=== PATIENT | female | born 1975 | race Two or more races ===

== ENCOUNTER 2018-04-12 18:20 | Inpatient (IN) | payer OTHER ==
[~2018-04-12] VITALS: Ht 157.5 cm; Wt 89.4 kg
[2018-04-12] MEDS ORDERED: FERR325E14 PO (18:46)
[2018-04-12] MEDS ORDERED: PREN-380 PO (18:46)
[2018-04-12] MEDS ORDERED: TERBUTALINE 1 MG/ML VIAL SUBQ SCH (18:50)
[2018-04-12 18:59] VITALS: BP 115/64
[2018-04-12 19:15] LABS: BASOPHILS % (AUTO) 0.2 % (0.0-2.0); EOSINOPHILS # (AUTO) 0.2 K/uL (0-0.4); EOSINOPHILS % (AUTO) 1.5 % (0.0-4.0); HEMATOCRIT 32.2 % (36-48); HEMOGLOBIN 10.9 g/dL (12.0-16.0); LYMPHOCYTES # (AUTO) 1.7 K/uL (2.5-16.5); LYMPHOCYTES % (AUTO) 17.3 % (20.5-51.1); MEAN CORPUSCULAR HEMOGLOBIN 28 pg (27-31); MEAN CORPUSCULAR HGB CONC 34 g/dL (33-37); MEAN CORPUSCULAR VOLUME 84.1 fL (80-94); MONOCYTES # (AUTO) 0.7 K/uL (0.8-1.0); MONOCYTES % (AUTO) 6.7 % (1.7-9.3); NEUTROPHILS # (AUTO) 7.4 K/uL (1.8-7.7); NEUTROPHILS % (AUTO) 74.3 % (42.2-75.2); PLATELET COUNT (AUTO) 212 K/uL (140-450); RED BLOOD CELL COUNT(AUTO) 3.83 MIL/uL (4.20-5.40); RED CELL DISTRIBUTION WIDTH 14.3 % (11.6-13.7); WHITE BLOOD COUNT (AUTO) 9.9 K/uL (4.8-10.8)
[2018-04-12] MEDS: LACTATED RINGERS 1,000 ML IV SCH (19:35)
[2018-04-12] MEDS ORDERED: BETAMETH ACET/BETAMETH NA PH 30 MG/5 ML VIAL IM ONE (20:09)
[2018-04-12] MEDS ORDERED: AMPICILLIN 2,000 MG VIAL ONE (20:29)
[2018-04-12 20:30] LABS: APPEARANCE,URINE CLEAR (CLEAR); COLOR,URINE YELLOW (YELLOW); UGLUCOSE NEGATIVE (NEGATIVE)
[2018-04-12 20:31] LABS: BILIRUBIN,URINE NEGATIVE (NEGATIVE); BLOOD, URINE NEGATIVE (NEGATIVE); LEUKOCYTE ESTERASE ,URINE NEGATIVE (NEGATIVE); NITRITE, URINE NEGATIVE (NEGATIVE)
[2018-04-12] MEDS ORDERED: AMPICILLIN 2,000 MG in NACL 0.9% 100 ML IV ONE (21:00)
[2018-04-12] MEDS ORDERED: BETAMETH ACET/BETAMETH NA PH 30 MG/5 ML VIAL IM SCH (21:00)
[2018-04-12] MEDS: NALBUPHINE 10 MG/ML AMP IVP PRN (22:48)
[2018-04-12] MEDS ORDERED: NALBUPHINE 10 MG/ML AMP ONE (22:50)
[2018-04-13] MEDS: LACTATED RINGERS 1,000 ML IV SCH ×3 (00:01→14:44)
[2018-04-13] MEDS ORDERED: AMPICILLIN 1,000 MG VIAL ONE ×6 (00:24→20:07)
[2018-04-13] MEDS: AMPICILLIN 1,000 MG in NACL 0.9% 50 ML IV SCH ×6 (00:31→20:36)
[2018-04-13] MEDS ORDERED: BETAMETH ACET/BETAMETH NA PH 30 MG/5 ML VIAL IM ONE (07:53)
--- NOTE | 2018-04-13 08:40 | NUR ---
PATIENT HAS BEEN SCREENED AND CATEGORIZED LOW NUTRITION RISK. PATIENT WILL BE SEEN WITHIN 7 DAYS OF ADMISSION. 04/19/[address]
[2018-04-13 10:03] LABS: BASOPHILS % (AUTO) 0.1 % (0.0-2.0); EOSINOPHILS % (AUTO) 0.1 % (0.0-4.0); HEMATOCRIT 29.2 % (36-48); HEMOGLOBIN 9.9 g/dL (12.0-16.0); LYMPHOCYTES # (AUTO) 1.1 K/uL (2.5-16.5); LYMPHOCYTES % (AUTO) 9.9 % (20.5-51.1); MEAN CORPUSCULAR HEMOGLOBIN 28 pg (27-31); MEAN CORPUSCULAR HGB CONC 34 g/dL (33-37); MEAN CORPUSCULAR VOLUME 83.6 fL (80-94); MONOCYTES # (AUTO) 0.3 K/uL (0.8-1.0); MONOCYTES % (AUTO) 2.9 % (1.7-9.3); NEUTROPHILS # (AUTO) 9.5 K/uL (1.8-7.7); PLATELET COUNT (AUTO) 209 K/uL (140-450); RED BLOOD CELL COUNT(AUTO) 3.49 MIL/uL (4.20-5.40); RED CELL DISTRIBUTION WIDTH 14.3 % (11.6-13.7); WHITE BLOOD COUNT (AUTO) 10.9 K/uL (4.8-10.8)
[2018-04-13 10:20] LABS: PROTHROMBIN TIME 9.3 secs (10.8-13.4)
--- NOTE | 2018-04-13 13:34 | NUR ---
CM NOTE INITIAL REVIEW FAXED TO [facility] [phone]
[2018-04-13] MEDS ORDERED: SODIUM PHOSPHATE 118 ML ENEM RC PRN (13:50)
[2018-04-14] MEDS: NALBUPHINE 10 MG/ML AMP IVP PRN (00:08)
[2018-04-14] MEDS ORDERED: NALBUPHINE 10 MG/ML AMP ONE (00:11)
[2018-04-14] MEDS ORDERED: AMPICILLIN 1,000 MG VIAL ONE ×4 (00:11→12:28)
[2018-04-14] MEDS: AMPICILLIN 1,000 MG in NACL 0.9% 50 ML IV SCH ×2 (04:30→08:22)
[2018-04-14] MEDS: LACTATED RINGERS 1,000 ML IV SCH (08:23)
== END 2018-04-14 17:55 | disposition home or self-care (01) | DRG 566 ==
LOC: MLD 18:20
PROVIDERS: ADMIT Obstetrics & Gynecology; ATTEND Obstetrics & Gynecology
PROC: 3E0234Z Introduction of Serum, Toxoid and Vaccine into Muscle, Percutaneous Approach (ICD-10-PCS; principal; 2018-04-14)
DX: O26.893 Other specified pregnancy related conditions, third trimester (principal); O34.219 Maternal care for unspecified type scar from previous cesarean delivery; Z3A.32 32 weeks gestation of pregnancy; Z29.13 Encounter for prophylactic Rho(D) immune globulin
CPT/HCPCS: 36415; 76805; 81003; 85025; 85379; 85384; 85610; 85730; 86886; 86900; 86901; J0290; J0702; J2300; J2790; J7120; Q0092

== ENCOUNTER 2018-05-17 10:30 | Inpatient (IN) | payer OTHER ==
[~2018-05-17] VITALS: Ht 157.5 cm; Wt 94.3 kg
[~2018-05-17 10:30] MED LIST: FERR325E14 PO; PREN-380 PO
[2018-05-24] MEDS ORDERED: LACTATED RINGERS 1,000 ML IV SCH (07:31)
[2018-05-24] MEDS ORDERED: CITRIC ACID/SODIUM CITRATE 30 ML UDC PO SCH (07:35)
--- NOTE | 2018-05-24 09:13 | NUR ---
PATIENT HAS BEEN SCREENED AND CATEGORIZED LOW NUTRITION RISK. PATIENT WILL BE SEEN WITHIN 7 DAYS OF ADMISSION. 05/30/[address]
[2018-05-24 10:29] LABS: BASOPHILS % (AUTO) 0.2 % (0.0-2.0); EOSINOPHILS # (AUTO) 0.1 K/uL (0-0.4); EOSINOPHILS % (AUTO) 0.7 % (0.0-4.0); HEMATOCRIT 32.8 % (36-48); HEMOGLOBIN 10.9 g/dL (12.0-16.0); LYMPHOCYTES # (AUTO) 1.5 K/uL (2.5-16.5); LYMPHOCYTES % (AUTO) 17.3 % (20.5-51.1); MEAN CORPUSCULAR HEMOGLOBIN 28 pg (27-31); MEAN CORPUSCULAR HGB CONC 33 g/dL (33-37); MEAN CORPUSCULAR VOLUME 83.4 fL (80-94); MONOCYTES # (AUTO) 0.4 K/uL (0.8-1.0); MONOCYTES % (AUTO) 4.8 % (1.7-9.3); NEUTROPHILS # (AUTO) 6.8 K/uL (1.8-7.7); PLATELET COUNT (AUTO) 171 K/uL (140-450); RED BLOOD CELL COUNT(AUTO) 3.93 MIL/uL (4.20-5.40); RED CELL DISTRIBUTION WIDTH 16.1 % (11.6-13.7); WHITE BLOOD COUNT (AUTO) 8.9 K/uL (4.8-10.8)
[2018-05-24] MEDS ORDERED: BUPIVACAINE/DEXT 0.75% SPINAL 2 ML AMP INJ ONE (10:30)
[2018-05-24 10:35] LABS: ANION GAP 8.5 (8-16); CARBON DIOXIDE 27.2 mmol/L (21-32); CREATININE 0.5 mg/dL (0.6-1.3); POTASSIUM 3.7 mmol/L (3.5-5.1)
[2018-05-24 10:38] LABS: BILIRUBIN,URINE NEGATIVE (NEGATIVE); BLOOD, URINE NEGATIVE (NEGATIVE); COLOR,URINE YELLOW (YELLOW); LEUKOCYTE ESTERASE ,URINE NEGATIVE (NEGATIVE); NITRITE, URINE NEGATIVE (NEGATIVE); PH,URINE 6.5 (5.0-9.0); UGLUCOSE NEGATIVE (NEGATIVE)
[2018-05-24 10:39] LABS: PROTHROMBIN TIME 9.1 secs (10.8-13.4)
[2018-05-24 10:39] LABS: APPEARANCE,URINE CLEAR (CLEAR)
[2018-05-24 10:40] LABS: ALBUMIN 2.2 g/dL (3.4-5.0); TOTAL BILIRUBIN 0.2 mg/dL (0.0-1.0)
[2018-05-24] MEDS ORDERED: MORPHINE PRES FREE 10 MG/10 ML AMP IV ONE (10:54)
[2018-05-24] MEDS ORDERED: OXYTOCIN 20 UNITS in LACTATED RINGERS 1,000 ML IV SCH ×2 (11:11→14:58)
[2018-05-24] MEDS ORDERED: NALOXONE 0.4 MG/ML VIAL IVP PRN ×3 (11:15)
[2018-05-24] MEDS ORDERED: MEPERIDINE 25 MG/ML SYR IVP PRN (11:15)
[2018-05-24] MEDS ORDERED: diphenhydrAMINE 50 MG/ML VIAL IVP PRN ×2 (11:15)
[2018-05-24] MEDS ORDERED: HYDROmorphone 1 MG/ML AMP IVP PRN (11:15)
[2018-05-24] MEDS ORDERED: ONDANSETRON 4 MG/2 ML VIAL IVP PRN ×2 (11:15)
[2018-05-24] MEDS ORDERED: NALBUPHINE 10 MG/ML AMP IVP PRN (11:15)
[2018-05-24] MEDS ORDERED: ONDANSETRON 4 MG/2 ML VIAL ONE (14:48)
[2018-05-24] MEDS ORDERED: diphenhydrAMINE 50 MG/ML VIAL ONE (14:49)
[2018-05-24] MEDS ORDERED: MEASLES, MUMPS, AND RUBELLA 1 VIAL SQVAC PRN (15:00)
[2018-05-24] MEDS ORDERED: SIMETHICONE 80 MG TAB.CHEW PO SCH (17:00)
[2018-05-24] MEDS: KETOROLAC 30 MG/ML VIAL IM/IVP SCH (23:09)
[2018-05-25] MEDS ORDERED: HYDROmorphone 1 MG/ML AMP IVP PRN (05:00)
[2018-05-25] MEDS ORDERED: OXYTOCIN 20 UNITS/LR PREMIX 1,000 ML IV ONE (05:41)
[2018-05-25 08:09] LABS: BASOPHILS % (AUTO) 0.3 % (0.0-2.0); EOSINOPHILS # (AUTO) 0.1 K/uL (0-0.4); EOSINOPHILS % (AUTO) 0.6 % (0.0-4.0); HEMATOCRIT 25.3 % (36-48); HEMOGLOBIN 8.5 g/dL (12.0-16.0); LYMPHOCYTES # (AUTO) 1.3 K/uL (2.5-16.5); LYMPHOCYTES % (AUTO) 12.4 % (20.5-51.1); MEAN CORPUSCULAR HEMOGLOBIN 28 pg (27-31); MEAN CORPUSCULAR HGB CONC 34 g/dL (33-37); MEAN CORPUSCULAR VOLUME 82.7 fL (80-94); MONOCYTES # (AUTO) 0.7 K/uL (0.8-1.0); MONOCYTES % (AUTO) 6.8 % (1.7-9.3); NEUTROPHILS # (AUTO) 8.5 K/uL (1.8-7.7); NEUTROPHILS % (AUTO) 79.9 % (42.2-75.2); PLATELET COUNT (AUTO) 157 K/uL (140-450); RED BLOOD CELL COUNT(AUTO) 3.05 MIL/uL (4.20-5.40); WHITE BLOOD COUNT (AUTO) 10.7 K/uL (4.8-10.8)
[2018-05-25] MEDS: KETOROLAC 30 MG/ML VIAL IM/IVP SCH (10:06)
[2018-05-25] MEDS: ACETAMINOPHEN 325 MG TAB PO PRN (17:21)
[2018-05-25] MEDS ORDERED: KETOROLAC 30 MG/ML VIAL IVP PRN (18:00)
[2018-05-25] MEDS: BISACODYL 5 MG TABEC PO SCH (21:01)
[2018-05-26] MEDS ORDERED: SODIUM PHOSPHATE 118 ML ENEM RC PRN (08:00)
[2018-05-26] MEDS ORDERED: SIMETHICONE 80 MG TAB.CHEW PO PRN (09:00)
[2018-05-26] MEDS: BISACODYL 5 MG TABEC PO SCH (09:21)
[2018-05-26] MEDS: IBUPROFEN 600 MG TAB PO PRN ×2 (09:21→22:21)
[2018-05-26] MEDS: DOCUSATE SODIUM 100 MG GELCAP PO SCH (09:22)
[2018-05-27] MEDS: IBUPROFEN 600 MG TAB PO PRN ×2 (09:17→19:43)
[2018-05-27] MEDS: BISACODYL 5 MG TABEC PO SCH (09:17)
[2018-05-27] MEDS: DOCUSATE SODIUM 100 MG GELCAP PO SCH (09:18)
[2018-05-28] MEDS: ACETAMINOPHEN 325 MG TAB PO PRN (02:48)
[2018-05-28] MEDS: IBUPROFEN 600 MG TAB PO PRN (08:46)
[2018-05-28] MEDS: BISACODYL 5 MG TABEC PO SCH (08:46)
[2018-05-28] MEDS: DOCUSATE SODIUM 100 MG GELCAP PO SCH (08:47)
== END 2018-05-28 15:05 | disposition home or self-care (01) | DRG 540 ==
LOC: MLD 05-24 06:52 → MFCC 05-24 10:45
PROVIDERS: ADMIT Obstetrics & Gynecology; ATTEND Obstetrics & Gynecology
PROC: 0UB70ZZ Excision of Bilateral Fallopian Tubes, Open Approach (ICD-10-PCS; 2018-05-24)
PROC: 3E0234Z Introduction of Serum, Toxoid and Vaccine into Muscle, Percutaneous Approach (ICD-10-PCS; 2018-05-24)
PROC: 0HB7XZZ Excision of Abdomen Skin, External Approach (ICD-10-PCS; 2018-05-24)
PROC: 10D00Z1 Extraction of Products of Conception, Low, Open Approach (ICD-10-PCS; principal; 2018-05-24 10:30)
PROC: 3E0234Z Introduction of Serum, Toxoid and Vaccine into Muscle, Percutaneous Approach (ICD-10-PCS; 2018-05-26)
DX: O34.211 Maternal care for low transverse scar from previous cesarean delivery (principal); E66.9 Obesity, unspecified; D25.9 Leiomyoma of uterus, unspecified; O34.13 Maternal care for benign tumor of corpus uteri, third trimester; O26.893 Other specified pregnancy related conditions, third trimester; O99.214 Obesity complicating childbirth; Z37.0 Single live birth; Z68.38 Body mass index [BMI] 38.0-38.9, adult; Z3A.39 39 weeks gestation of pregnancy; Z30.2 Encounter for sterilization; Z23 Encounter for immunization; Z67.41 Type O blood, Rh negative
CPT/HCPCS: 36415; 51702; 80053; 81003; 85025; 85610; 85730; 86592; 86850; 86870; 86886; 86900; 86901; 87070; 87081; 90715; J0690; J1200; J1885; J2270; J2405; J2590; J2790; J3490; J7060; J7120